=== PATIENT | female | born 2000 | race Hispanic/Latino ===

== ENCOUNTER 2022-05-15 21:45 | Emergency (ER) | payer SELFPAY ==
--- OUTSIDE RECORDS SUMMARY | 2022-05-15 21:49 | XMS REPORT | Continuity of Care Document ---
:2000 Author Organization Formerly [facility] t Address [address] [place] [address] Care Team Providers Name Role Phone .neto Attending Clinician Unavailable ENEDINA HARRIS Attending Clinician Unavailable ENEDINA HARRIS Attending Clinician Unavailable Minnie Mcdermott Attending Clinician [phone] SaeedWendy christie Attending Clinician Unavailable Rosalva García Attending Clinician Unavailable Neha Schultz Attending Clinician [phone] Enedina Harris Attending Clinician Mecca Duarte Attending Clinician Unavailable Monique Vázquez Attending Clinician Unavailable Darci Leyva Attending Clinician [phone] Shannen So Attending Clinician Unavailable Karina Hamilton Attending Clinician [phone] Claudia Valladares Attending Clinician Unavailable Ziyad Pollock Attending Clinician [phone] Kat Kilgore Attending Clinician Unavailable Carrie Arroyo Attending Clinician Unavailable Floresita Perry Attending Clinician Unavailable ENEDINA HARRIS Admitting Clinician Unavailable Enedina Harris Admitting Clinician Sharron, Minnie Unavailable [phone] Karina Hamilton Unavailable [phone] Payers Payer Name Policy Type Policy Number Effective Date Expiration Date S anthony [facility] P [id number] 2021 2021 CHIP 00:00:00 00:00:00 [place] [id number] 2021 2021 00:00:00 00:00:00 [facility] CI [id number] 2021 2022 [facility] 00:00:00 00:00:00 [facility] [facility] 11 [id number] 2021 2022 [facility] 00:00:00 00:00:00 [facility] Problems Condition Condition Condition Status Onset Resolution Last Treating Co mments Source Name Details Category Date Date Treatment Clinician Date Contracept Condition Active 2021-10-12 Aga, Minnie [facility] chioma 4-13 20:04:01 Communi management 00:00: ty 00 Health Anemia Condition Active 2020-072021-06-07 Aga, Minnie [facility] 2-06 11:57:43 Communi 00:00: ty 00 Health BMI 27 - Condition Active 2020-072021-06-06 Aga, Minnie [facility] 27.9, 2- 09:56:00 Communi adult 00:00: ty 00 Health ENCOUNTER ENCOUNTER Diagnosis Active 2021-08-26 Memoria FOR FOR 11-30 08:17:00 l VAGINAL VAGINAL 00:00: [place] DELIVERY DELIVERY 00 Active 11/30/2020 [facility] ENCOUNTER ENCOUNTER Diagnosis Active 2021-08-25 Memoria FOR FOR 07:25:00 l FULL-TERM FULL-TERM Herm gonsalo UNCOMPLICA UNCOMPLICA KHURRAM DE KHURRAM DE Active [facility] ENCOUNTER ENCOUNTER Diagnosis Active 2021-08-26 Memoria FOR FOR 08:17:00 l Rick n DELIVERY DELIVERY WITHOUT WITHOUT Active [facility] Patient Patient Problem Resolve 2021-08-312021-08-31 Memoria currently currently d 2- 22:43:35 22:43:35 l 00:00: Rick n (finding) (finding) 00 Resolved 08/26/2021 Problem 08/31/2021 [facility] History of Past Illness Condition Condition Condition Status Onset Resolution Last Treating Co mments Source Name Details Category Date Date Treatment Clinician Date Condition Inactiv 2021-11-10 2021-11-10 Aga, Destiny ne [facility] examinatio e 09-15 00:00:00 09:46:24 Co mmuni n, normal 00:00: ty 00 Health Condition Inactiv 2021-10-12 2021-10-12 Aga, Destiny ne [facility] depression e 09-15 00:00:00 11:34:34 Co mmuni , mild 00:00: ty 00 Health Breech Condition Inactiv 2021-10-12 2021-10-12 Aga, Minnie [facility] presentati e 08-18 00:00:00 11:34:34 Co mmuni on 00:00: ty 00 Health Rubella Condition Inactiv 2020-072021-10-12 2021-10-12 Aga, Minnie [facility] non-immune e 08-07 00:00:00 11:34:34 Co mmuni 00:00: ty 00 Health Insufficie Condition Inactiv 2020-072021-10-12 2021-10-12 Aga, Destiny ne [facility] nt e 08-02 00:00:00 11:34:34 Commun i 00:00: ty care, 00 Health third trimester Encounter Condition Inactiv 2020-072021-10-12 2021-10-12 Aga, Delphine e [facility] for e 08-02 00:00:00 11:34:34 Commun i supervisio 00:00: ty n of 00 Health normal first , third trimester 39 Weeks Condition Inactiv 2021-09-01 2021-08-25 Aga, Minnie [facility] Gestation e 08-25 00:00:00 10:02:30 Com jordan of 00:00: ty 00 Health 38 Weeks Condition Inactiv 2021-08-25 2021-08-18 Aga, Minnie [facility] Gestation e 2-17 00:00:00 10:31:37 Com jordan of 00:00: ty 00 Health 37 Weeks Condition Inactiv 2021-0 2021-08-18 2021-08-18 Aga, Minnie [facility] Gestation e - 00:00:00 10:31:37 Com jordan of 00:00: ty 00 Health 28 weeks Condition Inactiv 2021-07-25 2021-07-25 Aga, Minnie [facility] gestation e 07-12 00:00:00 09:00:14 Com jordan of 00:00: ty 00 Health 28 Weeks Condition Inactiv 2020-072021-06-20 2021-06-13 Beltramini [facility] Gestation e 08-14 00:00:00 15:57:22 , Karina Com jordan of 00:00: Weust ty 00 Health 30 weeks Condition Inactiv 2020-072021-06-13 2021-06-13 Beltramini [facility] gestation e 08-14 00:00:00 15:57:22 , Karina Com jordan of 00:00: Weust ty 00 Health 29 Weeks Condition Inactiv 2020-072021-06-08 2021-06-06 Aga, Minnie [facility] Gestation e 08-02 00:00:00 09:56:00 Com jordan of 00:00: ty 00 Health Allergies, Adverse Reactions, Alerts This patient has no known allergies or adverse reactions. Social History Social Habit Start Date Stop Date Quantity Comments Source is there any chance 2021-11-10 2021-11-10 [facility] that you could be 09:30:50 09:30:50 Health ? PHQ2 Questionairre 2021-11-10 2021-11-10 [facility] Score 09:30:50 09:30:50 Health if the patient is 2021-11-10 2021-11-10 No [facility] using/has used a 09:30:50 09:30:50 Health vaping item, Current, Former, Never Used, Not asked number of sexual 2021-10-12 2021-10-12 [facility] partners in last year 11:09:43 11:09:43 Hea lth Ever had sexual 2021-10-12 2021-10-12 Yes [facility] intercourse? 11:09:43 11:09:43 Health condom use 2021-09-15 2021-09-15 Never [facility] ty 08:56:40 08:56:40 Health total number of 2021-09-15 2021-09-15 [facility] lifetime sexual 08:56:40 08:56:40 Health partners Social History 2021-08-26 2021-08-26 [facility] Eleni kunz 15:24:25 15:24:25 assessment of health 2021-08-25 2021-08-25 Adequate [facility] literacy (NCQA [facility] 09:07:29 09:07:29 [facility] 2014 Standards, 3C10) passive cigarette 2021-08-25 2021-08-25 No [facility] smoke exposure 09:07:29 09:07:29 Health social history E&M 2021-06-01 2021-06-01 Pacien edil [facility] 10:26:47 10:26:47 Carl[place], does Health not work at the moment, lives in an apartment with two adults.she started her sex life a year ago. she does not practice any sabianism.denies alcohol, tobacco, tobacco abuse cat exposure during 2021-06-01 2021-06-01 no [facility] 10:26:47 10:26:47 Health Have you traveled to 2021-06-01 2021-06-01 no [facility] any zika virus 10:26:47 10:26:47 Health infected areas? Smoking Status Start Date Stop Date Source Never smoked tobacco (finding) [facility] Medications Ordered Filled Start Stop Current Ordering Indication Dosage Frequency Signature Comments Components Source Medication Medication Date Date Medication? Clinician (SIG) Name Name COLACE Yes Neha Take 1 [facility] (DOCUSATE 3-17 Horton-Sanc capsule by Communi SODIUM) 100 00:00: hez mouth ty MG CAPS 00 twice a Health day as needed tramadol Yes 50 mg = 1 Bari wanda hydrochlori 2-28 tab, PO, l de 50 MG 16:25: Q6H, PRN Marcela nn Oral Tablet 00 Pain, X 10 day, # 10 tab, 0 Refill(s), Pharmacy: [facility] Iggy , 144.78, cm, 08/25/21 7:43:00 LABORER HOISTING, Height, 58, kg, 08/25/21 7:43:00 LABORER HOISTING, Weight Tessalon No Notes: Memoria Perles 2-28 (Same As: l 04:49: Tessalon [place] 00 Perles) "Do Not Crush" Docusate Yes 100 mg = 1 Mem oria Sodium 100 2-27 cap, PO, l MG Oral 00:55: BID, PRN Rick n Capsule 00 Constipati on, # 60 cap, 0 Refill(s), Pharmacy: [facility] , 144.78, cm, 08/25/21 7:43:00 LABORER HOISTING, Height, 58, kg, 08/25/21 7:43:00 LABORER HOISTING, Weight ibuprofen Yes 800 mg = 1 Me moria 800 mg oral 2-27 tab, PO, l tablet 00:55: Q8H, PRN [place] 00 Pain, Take with food, X 14 day, # 30 tab, 0 Refill(s), Pharmacy: [facility] , 144.78, cm, 08/25/21 7:43:00 LABORER HOISTING, Height, 58, kg, 08/25/21 7:43:00 LABORER HOISTING, Weight ferrous Yes 325 mg = 1 Bari wanda sulfate 325 2-27 tab, PO, l MG Oral 00:55: Daily, # Rick n Tablet 00 90 tab, 0 Refill(s), Pharmacy: [facility] , 144.78, cm, 08/25/21 7:43:00 LABORER HOISTING, Height, 58, kg, 08/25/21 7:43:00 LABORER HOISTING, Weight Vitafol Yes 1 cap, PO, Bari wanda Ultra oral 2-27 Daily, # l capsule 00:55: 60 cap, 0 Marcela nn 00 Refill(s), Pharmacy: [facility] , 144.78, cm, 08/25/21 7:43:00 LABORER HOISTING, Height, 58, kg, 08/25/21 7:43:00 LABORER HOISTING, Weight No 1 tab, Memoria Multivitami 2-26 Route: PO, l ns oral 15:00: Drug Form: Herm gonsalo tablet 00 TAB, Dosing Weight 58, kg, Daily, Start date: 08/27/21 9:00:00 LABORER HOISTING, Duration: 30 day, Stop date: 09/25/21 9:00:00 CDT, 0 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 Ketorolac No 4 days Memor ia 08-27 l 00:00: MEDICATION WASTE Product Size: 30 mg Product Wasted: ___ mg Measles No Notes: Memoria Virus - (Same as: l Vaccine 22:00: M-M-R II) Marcela nn Live, 00 (measles-m [place]' umps-rubel attenuated la virus [facility] vaccine strain 2000 0.5 ml INJ UNT/ML / VL) WASTE: Mumps Virus F/P - Red; Vaccine E -Red Live, [place] [id number] DISCHARGE UNT/ML / Rubella Virus Vaccine Live ([facility] 27-3 Strain) 2000 UNT/ML Injectable Solution [M-M-R II] Calcium No 1,000 mL, Memor ia Chloride 2-25 1,000 l 0.0014 22:00: ml/hr, [place] MEQ/ML / 00 Infuse Potassium Over: 1 Chloride hr, Route: 0.004 IV, 1,000, MEQ/ML / Drug form: Sodium INJ, Chloride ONCALL, 0.103 Dosing MEQ/ML / Weight 58 Sodium kg, Start Lactate date: 0.028 02/25/22 MEQ/ML 16:00:00 Injectable LABORER HOISTING, Solution Duration: 1 doses or times, For OB hemorrhage per physician direction, 0 Oxytocin No Notes: Memoria 2-25 (Same as: l 22:00: Pitocin) Hazardous Drug Group 3:Reproduc tive risk Hazardous Drug -- Refer to safe handling procedure PPE Matrix Misoprostol No Notes: Bari wanda 2-25 (Same l 22:00: as:Cytotec ) Hazardous Drug Group 3:Reproduc tive risk Hazardous Drug -- Refer to safe handling procedure PPE Matrix Take with food Methylergon No Notes: Bari wanda ovine 2-25 (Same l 22:00: as:Metherg ine) Hazardous Drug Group 3:Reproduc tive risk Hazardous Drug -- Refer to safe handling procedure PPE Matrix Atropine No Notes: Memoria Sulfate 2-25 (Same As: l 0.025 MG / 22:00: Lomotil) Her talaevra Diphenoxyla MAX Adult te dose = 8 Hydrochlori tabs/day de 2.5 MG Oral Tablet Carboprost No Notes: Memor ia 2-25 (Same As: l 22:00: Hemabate) Tranexamic No Notes: Memor ia Acid 2-25 (Same As: l 22:00: Cyklokapro n) Lactated No 1,000 mL, Bari wanda Ringers IV 2-25 Rate: 100 l 1,000 mL 21:41: ml/hr, Infuse over: 10 hr, Route: IV, Dosing Weight 58 kg, Total Volume: 1,000, see special instructio n for rate while completing infusion from recovery for the 20 Units of Oxytocin., Start date: 08/26/21 15:41:00 LABORER HOISTING, Duration: 30... Ondansetron No Notes: Bari wanda 2-25 (Same as: l 21:41: Zofran) MEDICATION WASTE Product Size: 4 mg Product Wasted: ___ mg Docusate No Notes: Memoria 2-25 (Same as: l 21:41: Colace) (Do Not Crush) Bisacodyl No Notes: Memori a 2-25 (Same As: l 21:41: Dulcolax, [place] 00 Correctol) (Do Not Crush) "Do Not Crush" lanolin No Notes: Memoria topical 2-25 (Same l 21:41: as:Lanolin [place] 00 ) Benzocaine No Notes: Memor ia 200 MG/ML / 2-25 (Same As: l Menthol 5 21:41: [facility] He rmann MG/ML 00 ) WASTE: Topical Aerosol - [place] Return to [[facility]] FOR EXTERNAL USE ONLY Oxytocin No Notes: Memoria 2-25 Hazardous l 21:41: Drug Group [place] 00 3:Reproduc tive risk Hazardous Drug -- Refer to safe handling procedure PPE Matrix Saline No Notes: Memoria Flush 0.9% 2-25 Same as: l 21:41: BD [place] 00 Posiflush Sterile Acetaminoph No Notes: Bari wanda en 325 MG / 2-25 (Same as: l Hydrocodone 21:41: Brule Marcela nn Bitartrate 00 325/5) Do 5 MG Oral not exceed Tablet 4gm/day of acetaminop hen. Acetaminoph No Notes: Do M emoria en 325 MG / 2-25 not exceed l Hydrocodone 21:41: 4gm/day of [place] Bitartrate 00 acetaminop 10 MG Oral hen. (Same Tablet as: Brule 325/10) Famotidine No Notes: Memor ia 2-25 (Same as: l 20:00: Pepcid) Yvan 00 Can be dilute in 5-10cc NS IVP: Slow IV push over at least 2 minutes. Calcium No 1,000 mL, Memor ia Chloride 2-25 1,000 l 0.0014 20:00: ml/hr, Yvan MEQ/ML / 00 Infuse Potassium Over: 1 Chloride hr, Route: 0.004 IV, 1,000, MEQ/ML / Drug form: Sodium INJ, Chloride ONCALL, 0.103 Dosing MEQ/ML / Weight 58 Sodium kg, Start Lactate date: 0.028 08/26/22 MEQ/ML 14:00:00 Injectable LABORER HOISTING, Solution Duration: 1 doses or times, For OB hemorrhage per physician direction, 0 Oxytocin No Notes: Memoria 2-25 (Same as: l 20:00: Pitocin) Hazardous Drug Group 3:Reproduc tive risk Hazardous Drug -- Refer to safe handling procedure PPE Matrix Misoprostol No Notes: Bari wanda 2-25 (Same l 20:00: as:Cytotec ) Hazardous Drug Group 3:Reproduc tive risk Hazardous Drug -- Refer to safe handling procedure PPE Matrix Take with food Methylergon No Notes: Bari wanda ovine 2-25 (Same l 20:00: as:Metherg ine) Hazardous Drug Group 3:Reproduc tive risk Hazardous Drug -- Refer to safe handling procedure PPE Matrix Carboprost No Notes: Memor ia 2-25 (Same As: l 20:00: Hemabate) Tranexamic No Notes: Memor ia Acid 2-25 (Same As: l 20:00: Cyklokapro n) Cefazolin No Notes: Memori a 2-25 Same as l 20:00: Ancef Azithromyci No Notes: Bari wanda n 2-25 (Same As: l 20:00: Zithromax IV) Atropine No Notes: Memoria Sulfate 2-25 (Same As: l 0.025 MG / 20:00: Lomotil) Her [facility] Diphenoxyla MAX Adult te dose = 8 Hydrochlori tabs/day de 2.5 MG Oral Tablet Measles Yes Notes: Memoria Virus 2-25 (Same as: l Vaccine 20:00: M-M-R II) Marcela nn Live, 00 (measles-m [place]' umps-rubel attenuated la virus [facility] vaccine strain 2000 0.5 ml INJ UNT/ML / VL) WASTE: Mumps Virus F/P - Red; Vaccine E -Red Live, [place] [id number] DISCHARGE UNT/ML / Rubella Virus Vaccine Live ([facility] RA 27-3 Strain) 2000 UNT/ML Injectable Solution [M-M-R II] ondansetron No Route: IV, Memoria (ANES) 2-25 Drug form: l 19:53: INJ, ONCE, Stop date: 08/26/21 13:53:00 LABORER HOISTING dexamethaso No Route: IV, Memoria ne (ANES) 2-25 Drug form: l 19:53: INJ, ONCE, Stop date: 08/26/21 13:53:00 LABORER HOISTING phenylephri No Route: IV, Memoria ne (ANES) 2-25 Drug form: l 19:53: INJ, ONCE, Stop date: 08/26/21 13:53:00 LABORER HOISTING ketOROLAC No IV, ONCE Bari wanda (ANES) 2-25 l 19:49: Lactated No 1,000 mL, Bari wanda Ringers IV 2-25 Rate: 125 l 1,000 mL 19:41: ml/hr, Infuse over: 8 hr, Route: IV, Dosing Weight 58 kg, Total Volume: 1,000, see special instructio n for rate while completing infusion from recovery for the 20 Units of Oxytocin., Start date: 08/26/21 13:41:00 LABORER HOISTING, Duration: 30... Bisacodyl No Notes: Memori a 2-25 (Same As: l 19:41: Dulcolax, Bisco-Lax) Docusate No Notes: Memoria 2-25 (Same as: l 19:41: Colace) (Do Not Crush) lanolin No Notes: Memoria topical 2-25 (Same l cream 19:41: as:Lanolin 00 ) Benzocaine No Notes: Memor ia / Menthol 2-25 Same as: l 19:41: Cepacol Simethicone No Notes: Bari wanda 2-25 (Same as: l 19:41: Mylicon) Oxytocin No Notes: Memoria 2-25 Hazardous l 19:41: Drug Group 3:Reproduc tive risk Hazardous Drug -- Refer to safe handling procedure PPE Matrix Saline 2022-0 No Notes: Memoria Flush 0.9% 2-25 (Same as: l 19:41: BD Yvan Posiflush) Calcium No 1,000 mL, Memor ia Chloride 2-25 Rate: 125 l 0.0014 19:35: ml/hr, Yvan MEQ/ML / 00 Infuse Potassium over: 8 Chloride hr, Route: 0.004 IV, Dosing MEQ/ML / Weight 58 Sodium kg, Total Chloride Volume: 0.103 1,000, see MEQ/ML / special Sodium instructio Lactate ns when 0.028 infusing MEQ/ML 20 Units Injectable of Solution Oxytocin., Start date: 08/26/21 13:35:00 LABORER HOISTING, Duration: 30 day, Stop date: 09/25/21 13:34:00 CDT, BSA... oxytocin 30 No Notes: Bari wanda units in NS 2-25 Hazardous l 500 mL 19:35: Drug Group Marcela nn (Bolus) IV 00 3:Reproduc 10.02 unit tive risk Hazardous Drug -- Refer to safe handling procedure PPE Matrix oxytocin 30 No Notes: Bari wanda units in NS 2-25 Hazardous l 500 mL IV 19:35: Drug Group He rmann 19.98 unit 00 3:Reproduc tive risk Hazardous Drug -- Refer to safe handling procedure PPE Matrix Ondansetron No Notes: Bari wanda 2-25 (Same as: l 19:35: Zofran) Yvan 00 MEDICATION WASTE Product Size: 4 mg Product Wasted: ___ mg Oxytocin No Notes: Memoria 2-25 Hazardous l 19:35: Drug Group Yvan 00 3:Reproduc tive risk Hazardous Drug -- Refer to safe handling procedure PPE Matrix Atropine No Notes: Memoria Sulfate 2-25 (Same As: l 0.025 MG / 19:35: Lomotil) Her talavera Diphenoxyla 00 MAX Adult te dose = 8 Hydrochlori tabs/day de 2.5 MG Oral Tablet morphine No Route: Memoria Sulfate 2-25 EPIDURAL, l (ANES) 19:14: Drug form: Marcela nn 00 INJ, ONCE, Stop date: 08/26/21 13:14:00 LABORER HOISTING azithromyci 2022-0 No Route: IV, Memoria n (ANES) 2-25 Drug form: l 19:14: INJ, ONCE, Stop date: 08/26/21 13:14:00 LABORER HOISTING ceFAZolin No Route: IV, Me moria (ANES) 2-25 Drug form: l 19:04: INJ, ONCE, Stop date: 08/26/21 13:04:00 LABORER HOISTING Naloxone No Notes: Memoria 2-25 Same as l 19:00: Narcan oxytocin No Route: IV, Mem oria (ANES) 30 2-25 Drug form: l unit 18:55: SOLN, Start date: 08/26/21 12:55:00 LABORER HOISTING, Stop date: 08/26/21 13:55:00 LABORER HOISTING fentaNYL No Route: Memoria (ANES) 2-25 EPIDURAL, l 18:48: Drug form: INJ, ONCE, Stop date: 08/26/21 12:48:00 LABORER HOISTING lidocaine No Route: Memori a (ANES) 2-25 EPIDURAL, l 18:48: Drug form: INJ, ONCE, Stop date: 08/26/21 12:48:00 LABORER HOISTING Acetaminoph No Notes: Max Memoria en 2-25 acetaminop l 18:48: hen 4000 mg/day (4 gm/day). (Same as: Tylenol Extra Strength) Oxycodone No Notes: Memori a Hydrochlori 2-25 (Same as: l de 1 MG/ML 18:48: 'Roxicodon H ermann Oral 00 e) Solution Hydromorpho No Notes: Bari wanda ne 2-25 Same as l 18:48: Dilaudid Ondansetron No Notes: Bari wanda 2-25 (Same as: l 18:48: Zofran) MEDICATION WASTE Product Size: 4 mg Product Wasted: ___ mg Nalbuphine No Notes: Memor ia 2-25 (Same As: l 18:48: Nubain) Lactated No Route: IV, Mem oria Ringers 2-25 Total l Injection 17:48: Volume: Marcela nn IV (ANES) 00 1,000, 1000 mL Start date: 08/26/21 11:48:00 LABORER HOISTING, Stop date: 08/26/21 12:48:00 LABORER HOISTING Ibuprofen No Notes: Memori a 2-25 (Same as: l 16:00: Motrin) "Do Not Crush" Take with food. Calcium No 1,000 mL, Memor ia Chloride 2-25 1,000 l 0.0014 16:00: ml/hr, MEQ/ML / 00 Infuse Potassium Over: 1 Chloride hr, Route: 0.004 IV, 1,000, MEQ/ML / Drug form: Sodium INJ, Chloride ONCALL, 0.103 Dosing MEQ/ML / Weight 58 Sodium kg, Start Lactate date: 0.028 08/26/21 MEQ/ML 10:00:00 Injectable LABORER HOISTING, Solution Duration: 1 doses or times, For OB hemorrhage per physician direction, 0 Oxytocin No Notes: Memoria 2-25 (Same as: l 16:00: Pitocin) Hazardous Drug Group 3:Reproduc tive risk Hazardous Drug -- Refer to safe handling procedure PPE Matrix Misoprostol No Notes: Bari wanda 2-25 (Same l 16:00: as:Cytotec ) Hazardous Drug Group 3:Reproduc tive risk Hazardous Drug -- Refer to safe handling procedure PPE Matrix Take with food Methylergon No Notes: Bari wanda ovine 2-25 (Same l 16:00: as:Metherg ine) Hazardous Drug Group 3:Reproduc tive risk Hazardous Drug -- Refer to safe handling procedure PPE Matrix Atropine No Notes: Memoria Sulfate 2-25 (Same As: l 0.025 MG / 16:00: Lomotil) Her talavera Diphenoxyla 00 MAX Adult te dose = 8 Hydrochlori tabs/day de 2.5 MG Oral Tablet Carboprost No Notes: Memor ia 2-25 (Same As: l 16:00: Hemabate) Tranexamic No Notes: Memor ia Acid 2-25 (Same As: l 16:00: Cyklokapro 00 n) Calcium No 1,000 mL, Memor ia Chloride 2-25 Rate: 125 l 0.0014 15:34: ml/hr, [place] MEQ/ML / 00 Infuse Potassium over: 8 Chloride hr, Route: 0.004 IV, Dosing MEQ/ML / Weight 58 Sodium kg, Total Chloride Volume: 0.103 1,000, see MEQ/ML / special Sodium instructio Lactate ns when 0.028 infusing MEQ/ML 20 Units Injectable of Solution Oxytocin., Start date: 08/26/21 9:34:00 LABORER HOISTING, Duration: 30 day, Stop date: 09/25/21 9:33:00 CDT, BSA:... oxytocin No Notes: Bari wanda units in NS 2-25 Hazardous l 500 mL 15:34: Drug Group Marcela nn (Bolus) IV 00 3:Reproduc 10.02 unit tive risk Hazardous Drug -- Refer to safe handling procedure PPE Matrix oxytocin 30 No Notes: Bari wanda units in NS 2-25 Hazardous l 500 mL IV 15:34: Drug Group He rmann 19.98 unit 00 3:Reproduc tive risk Hazardous Drug -- Refer to safe handling procedure PPE Matrix Butorphanol No Notes: Bari wanda 2-25 (Same As: l 15:34: Stadol) Acetaminoph No Notes: Bari wanda en 325 MG / 2-25 (Same as: l Hydrocodone 15:34: Brule Marcela nn Bitartrate 00 325/5) Do 5 MG Oral not exceed Tablet 4gm/day of acetaminop hen. Acetaminoph No Notes: Do M emoria en 325 MG / 2-25 not exceed l Hydrocodone 15:34: 4gm/day of [place] Bitartrate 00 acetaminop 10 MG Oral hen. (Same Tablet as: [place] 325/10) Ondansetron No Notes: Bari wanda 2-25 (Same as: l 15:34: Zofran) MEDICATION WASTE Product Size: 4 mg Product Wasted: ___ mg Lidocaine No Notes: Memori a Hydrochlori 2-25 Preservati l de 10 MG/ML 15:34: ve free. He rmann Injectable 00 (Same as: Solution Xylocaine MPF) Terbutaline No Notes: Bari wanda 2-25 DO NOT l 15:34: USE IN Yvan 00 HAND FORMER AREA (Same As: Brethine) Benzocaine No Notes: Memor ia 200 MG/ML / 2-25 (Same As: l Menthol 5 15:34: [facility] He rmann MG/ML 00 ) WASTE: Topical Aerosol - [place] Return to [[facility]] FOR EXTERNAL USE ONLY Oxytocin No Notes: Memoria 2-25 Hazardous l 15:34: Drug Group Yvan 00 3:Reproduc tive risk Hazardous Drug -- Refer to safe handling procedure PPE Matrix ferrous No 325 mg = 1 Bari wanda sulfate 325 2-23 tab, PO, l mg oral 22:40: Daily Yvan enteric 00 coated tablet 1 No 1 tab, PO, M emoria oral 2-23 Daily l capsule 22:39: [place] 00 VITAFOL Yes Minnie Aga Take 1 [facility] ULTRA 1-19 capsule by Communi (PRENAT-FE 00:00: mouth once t y POLY-METHFO 00 a day Health L-FA-DHA) 29-0.6-0.4- 200 MG CAPS (FERROUS 2020-07 Yes Minnie Aga Take 1 [place] SULFATE) 2-06 tablet by Commun i 325 (65 Fe) 00:00: mouth once ty MG TABS 00 a day Health 2020-07- Minnie Aga Take 1 L egacy VITAMIN 2-01 01-19 tablet by Commun i ( 00:00: 00:00 mouth once t y VIT-FE 00 :00 a day Health FUMARATE-FA ) 27-0.8 MG TABS Immunizations Ordered Immunization Filled Immunization Date Status Commen ts Source Name Name Gardasil 9 IM 2021-10-12 Completed [facility] [id number] 11:27:00 Health measles/mumps/rubell 2021-08-29 Completed Bari rial Yvan a virus vaccine 17:39:00 Adacel IM 2021-06-13 Completed [facility] [id number] 12:18:00 Health Vital Signs Vital Name Observation Time Observation Value Comments Source height in 2021-11-10 09:30:50 3291.84 cm [facility] centimeters E&M Health blood pressure, 2021-11-10 09:30:50 51 mm[Hg] [facility] diastolic Health blood pressure, 2021-11-10 09:30:50 99 mm[Hg] [facility] systolic Health pulse rate 2021-11-10 09:30:50 61 /min [facility] temperature E&M 2021-11-10 09:30:50 98.4 [degF] [facility] pulse rate 2021-10-12 11:09:43 69 /min [facility] temperature E&M 2021-10-12 11:09:43 98.0 [degF] [facility] Health blood pressure, 2021-10-12 11:09:43 108 mm[Hg] [facility] systolic Health blood pressure, 2021-10-12 11:09:43 68 mm[Hg] [facility] Health weight E&M 2021-10-12 11:09:43 108.4 [lb_av] [facility] 2021-10-12 11:09:43 oral [facility] height E&M 2021-10-12 11:09:43 57 [in_i] [facility] blood pressure, 2021-09-15 08:56:40 60 mm[Hg] [facility] diastolic Health blood pressure, 2021-09-15 08:56:40 107 mm[Hg] [facility] systolic Health pulse rate 2021-09-15 08:56:40 63 /min [facility] temperature E&M 2021-09-15 08:56:40 98.7 [degF] [facility] weight E&M 2021-09-15 08:56:40 113.4 [lb_av] [facility] 2021-09-15 08:56:40 oral [facility] height E&M 2021-09-15 08:56:40 57 [in_i] [facility] Respitory Rate 2021-08-29 13:33:53 Memori al Yvan Systolic (mm Hg) 2021-08-29 13:33:36 Bari rial [place] Diastolic (mm Hg) 2021-08-29 13:33:36 Mem orial [place] Heart Rate 2021-08-29 13:33:36 [facility] [place] Temperature Oral (F) 2021-08-29 13:33:10 98.6 F [facility] [place] Heart Rate 2021-08-29 05:35:54 [facility] Respitory Rate 2021-08-29 05:35:54 Memori al Yvan Systolic (mm Hg) 2021-08-29 05:35:38 Bari rial Yvan Diastolic (mm Hg) 2021-08-29 05:35:38 Mem orial [place] Heart Rate 2021-08-29 05:35:38 [facility] [place] Temperature Oral (F) 2021-08-29 05:35:29 98.8 F [facility] [place] Temperature Oral (F) 2021-08-29 04:45:00 99.5 F [facility] Respitory Rate 2021-08-29 01:03:05 [facility] al [facility] Heart Rate 2021-08-29 01:03:05 [facility] [place] Systolic (mm Hg) 2021-08-29 01:02:59 Bari rial [place] Diastolic (mm Hg) 2021-08-29 01:02:59 Mem orial Yvan Temperature Oral (F) 2021-08-29 01:02:38 98.7 F [facility] [place] Respitory Rate 2021-08-28 21:39:42 Memori al Yvan Systolic (mm Hg) 2021-08-28 21:39:32 Bari rial Yvan Diastolic (mm Hg) 2021-08-28 21:39:32 Mem orial [place] Height 2021-08-25 13:43:00 144.78 cm [facility] Weight 2021-08-25 13:43:00 [facility] BMI Calculated 2021-08-25 13:43:00 Memori al Yvan blood pressure, 2021-08-25 09:07:29 62 mm[Hg] [facility] blood pressure, 2021-08-25 09:07:29 96 mm[Hg] [facility] pulse rate 2021-08-25 09:07:29 72 /min [facility] temperature E&M 2021-08-25 09:07:29 98.5 [degF] [facility] weight E&M 2021-08-25 09:07:29 129.2 [lb_av] [facility] temperature site 2021-08-25 09:07:29 oral [facility] height E&M 2021-08-25 09:07:29 57 [in_i] [facility] Height 2021-08-24 22:38:00 146 cm [facility] 2021-08-24 22:38:00 [facility] BMI Calculated 2021-08-24 22:38:00 [facility] [place] Height 2021-08-20 10:03:00 144.78 cm [facility] Weight 2021-08-20 10:03:00 [facility] BMI Calculated 2021-08-20 10:03:00 [facility] blood pressure, 2021-08-18 09:40:25 55 mm[Hg] [facility] diastolic Health blood pressure, 2021-08-18 09:40:25 94 mm[Hg] Leg[facility] systolic Health pulse rate 2021-08-18 09:40:25 67 /min [facility] temperature E&M 2021-08-18 09:40:25 98.9 [degF] [facility] weight E&M 2021-08-18 09:40:25 125.6 [lb_av] [facility] site 2021-08-18 09:40:25 oral [facility] height E&M 2021-08-18 09:40:25 57 [in_i] [facility] blood pressure, 2021-08-11 10:06:57 68 mm[Hg] [facility] blood pressure, 2021-08-11 10:06:57 105 mm[Hg] [facility] Health pulse rate 2021-08-11 10:06:57 62 /min [facility] temperature E&M 2021-08-11 10:06:57 97.9 [degF] [facility] weight E&M 2021-08-11 10:06:57 127.4 [lb_av] [facility] 2021-08-11 10:06:57 oral [facility] height E&M 2021-08-11 10:06:57 57 [in_i] [facility] blood pressure, 2021-07-25 08:35:35 68 mm[Hg] [facility] blood pressure, 2021-07-25 08:35:35 106 mm[Hg] [facility] pulse rate 2021-07-25 08:35:35 85 /min [facility] temperature E&M 2021-07-25 08:35:35 97.8 [degF] [facility] weight E&M 2021-07-25 08:35:35 124.0 [lb_av] [facility] 2021-07-25 08:35:35 oral [facility] height E&M 2021-07-25 08:35:35 57 [in_i] [facility] pulse rate 2021-07-20 09:23:26 96 /min [facility] temperature E&M 2021-07-20 09:23:26 98.6 [degF] [facility] blood pressure, 2021-07-20 09:23:26 67 mm[Hg] [facility] Health blood pressure, 2021-07-20 09:23:26 108 mm[Hg] [facility] weight E&M 2021-07-20 09:23:26 124 [lb_av] [facility] temperature site 2021-07-20 09:23:26 oral [facility] height E&M 2021-07-20 09:23:26 57 [in_i] [facility] blood pressure, 2021-06-13 13:30:55 63 mm[Hg] [facility] Health blood pressure, 2021-06-13 13:30:55 107 mm[Hg] [facility] pulse rate 2021-06-13 13:30:55 76 /min [facility] temperature E&M 2021-06-13 13:30:55 97.7 [degF] [facility] weight E&M 2021-06-13 13:30:55 121 [lb_av] [facility] site 2021-06-13 13:30:55 oral [facility] height E&M 2021-06-13 13:30:55 57 [in_i] [facility] blood pressure, 2021-06-13 11:21:19 63 mm[Hg] [facility] diastolic Health blood pressure, 2021-06-13 11:21:19 101 mm[Hg] [facility] systolic Health pulse rate 2021-06-13 11:21:19 78 /min [facility] temperature E&M 2021-06-13 11:21:19 98.2 [degF] [facility] weight E&M 2021-06-13 11:21:19 120.4 [lb_av] [facility] site 2021-06-13 11:21:19 oral [facility] height E&M 2021-06-13 11:21:19 57 [in_i] [facility] blood pressure, 2021-06-01 10:26:47 63 mm[Hg] [facility] diastolic Health blood pressure, 2021-06-01 10:26:47 101 mm[Hg] [facility] systolic Health pulse rate 2021-06-01 10:26:47 62 /min [facility] temperature E&M 2021-06-01 10:26:47 97.5 [degF] Legac y [facility] temperature site 2021-06-01 10:26:47 oral Lega [facility] height E&M 2021-06-01 10:26:47 57 [in_i] [facility] weight E&M 2021-06-01 10:26:47 128 [lb_av] [facility] Procedures Procedure Date / Time Performing Clinician Source Performed Insertion, 2021-11-10 09:45:52 Minnie Mcdermott nitprakash non-biodegradable drug Health delivery implant (Nexplanon) Etonogestrel 2021-11-10 09:45:52 Minnie Mcdermott nity (contraceptive) implant Health system, including implant and supplies IM or SQ Injection 2021-10-12 11:33:35 Minnie Mcdermott [facility] First Ix admin via ID IM 2021-10-12 11:26:36 Minnie Mcdermott luma [facility] or jet injects with Health counseling by physician for adult Gardasil 9 Intramuscular 2021-10-12 11:26:36 Minnie Mcdermott Douglas ge [facility] Suspension Health Vaccines Ordered - Print 2021-10-12 11:23:54 Sharron Minnie Douglas [facility] Consent/Declination Health Forms Behavioral Health - 2021-09-15 09:33:18 Neha [facility] OB Ultrasound, single 2021-06-13 15:56:38 Karina Hamilton [facility] First Ix admin via ID IM 2021-06-13 12:16:22 Ziyad Pollock luma [facility] or jet injects with Health counseling by physician for adult Adacel Intramuscular 2021-06-13 12:16:22 Ziyad Pollock [facility] Suspension 5-2-15.5 Health Vaccines Ordered - Print 2021-06-13 11:23:04 Phill Ziyad [facility] Consent/Declination Health Forms Vaccines Ordered - Print 2021-06-01 10:44:50 Sharron Minnie ge [facility] Consent/Declination Health Forms Health 2021-02-28 13:14:59 Provider, José antoine Education/Supportive Health Services Health Counseling Encounters Start End Encounter Admission Attending Care Care Encounter Source Date/Time Date/Time Type Type Clinicians Facility Department ID 2022-05-01 Outpatient bridgett [facility] [id number] [facility] 05:05:17 [id number] [facility] 2021-11-25 Outpatient FABIANA [facility] [id number] 8-2 [place] 01:03:41 ENEDINA [id number] Health 2021-08-26 Inpatient [facility] 2027 [facility] 08:14:00 ENEDINA 2021-11-10 2021-11-10 Office Minnie Mcdermott [facility] Encount er/ Legacy 00:00:00 00:00:00 Visit Saeed, Wendy [id number] Communi [id number] ty Health 2021-10-12 2021-10-12 Office Minnie Mcdermott [facility] Encount er/ Legacy 00:00:00 00:00:00 Visit Rosalva García [id number] Communi Wendy [place] [id number] ty Health 2021-09-15 2021-09-15 [facility] 00:00:00 00:00:00 Visit Wendy [place]ipt[place] [id number] Commun [id number] Health 2021-08-26 2021-08-29 Inpatient [facility] [id number] [facility] 14:14:00 18:25:00 Yvan 28 l [facility] 2021-08-26 2021-08-29 [facility]patient [facility] [id number] 08:14:00 12:25:00 Enedina Manoj 28 2021-08-26 2021-08-26 [facility]patient [facility] [id number] 08:14:00 08:14:00 Enedina Manoj 28 2021-08-25 2021-08-25 Office Minnie Mcdermott [facility] Encount er/ Legacy 00:00:00 00:00:00 Visit Mecca Duarte [id number] Communi [id number] Health 2021-08-18 2021-08-18 Office Minnie Mcdermott [facility] Encount er/ Legacy 00:00:00 00:00:00 Visit Wendy Tipton [id number] [facility] Monique Vázquez [id number] ty Health 2021-08-11 2021-08-11 Office Darci Leyva [facility] Enc ounter/ Legacy 00:00:00 00:00:00 Visit Shannen So [id number] Communi [id number] ty Health 2021-07-25 2021-07-25 Office Minnie Mcdermott [facility] Encount er/ Legacy 00:00:00 00:00:00 Visit Shannen So [id number] Communi [id number] ty Health 2021-06-13 2021-06-13 Office Karina Hamilton [facility] Encounter/ Legacy 00:00:00 00:00:00 Visit Mecca Duarte [id number] [facility] Claudia Valladares [id number] t Health 2021-06-13 2021-06-13 Office Ziyad Pollock [facility] En counter/ Legacy 00:00:00 00:00:00 Visit Kat Kilgore [id number] [facility] Arroyo, Carrie [id number] Health 2021-06-01 2021-06-01 Office Minnie Mcdermott [facility] Encount er/ Legacy 00:00:00 00:00:00 Visit Floresita Perry 1 [id number] [facility] [id number] [facility] Results Test Description Test Time Test Comments Results Result Comments Source beta HCG, urine, semiquantitative 2021-11-10 09:30:50 Test Item Value Reference Range Interpretation Comme nts beta HCG, urine, semiquantitative (test code = 2106-3) negative [facility] 06:24:00 Test Item Value Reference Range Interpretation Comments Hgb (test code = Hgb) 10.3 12.0-16.0 [facility] [id number] 06:24:00 Test Item Value Reference Range Interpretation Comments Hct (test code = Hct) 30.4 36.0-48.0 [facility] [employer] [id number] 15:37:00 Test Item Value Reference Range Interpretation Comments ABO/Rh (test code = ABO/Rh) O POS [facility] [employer] [id number] 15:37:00 Test Item Value Reference Range Interpretation Comments Antibody Scrn (test Negative (08/26/21 9:37 code = Antibody Scrn) AM) [facility] [employer] [id number] 15:37:00 Test Item Value Reference Range Interpretation Comments Rhig Reqd (test code = See Note 1(08/26/21 9:37 Rhig Reqd) AM) [facility] [id number] 15:37:00 Test Item Value Reference Range Interpretation Comments WBC X 10x3 (test code = WBC X 10x3) 6.7 3.7-10.4 [place] [id number] 15:37:00 Test Item Value Reference Range Interpretation Comments RBC X 10x6 (test code = RBC X 10x6) 3.84 4.20-5.40 [place] [id number] 15:37:00 Test Item Value Reference Range Interpretation Comments Hgb (test code = Hgb) 11.8 12.0-16.0 [place] 87359-02-25 15:37:00 Test Item Value Reference Range Interpretation Comments Hct (test code = Hct) 35.4 36.0-48.0 [place] [id number] 15:37:00 Test Item Value Reference Range Interpretation Comments MCV (test code = MCV) 92.1 80.0-98.0 [place] 87359-02-25 15:37:00 Test Item Value Reference Range Interpretation Comments MCH (test code = MCH) 30.8 pg 27.0-31.0 [place] [id number] 15:37:00 Test Item Value Reference Range Interpretation Comments MCHC (test code = MCHC) 33.5 32.0-36.0 [place] [id number] 15:37:00 Test Item Value Reference Range Interpretation Comments RDW (test code = RDW) 14.9 11.5-14.5 [place] [id number] 15:37:00 Test Item Value Reference Range Interpretation Comments Platelet (test code = Platelet) 196 133-450 [facility]KdvkwbuRTZUSKCZBI5766-78-53 15:37:00 Test Item Value Reference Range Interpretation Comments MPV (test code = MPV) 10.0 7.4-10.4 [place] [id number] 15:37:00 Test Item Value Reference Range Interpretation Comments Segs (test code = Segs) 59.4 45.0-75.0 [place] 87[address]-02-25 15:37:00 Test Item Value Reference Range Interpretation Comments Lymphocytes (test code = Lymphocytes) 28.2 20.0-40.0 [place] [address]-02-25 15:37:00 Test Item Value Reference Range Interpretation Comments Monocytes (test code = Monocytes) 9.1 2.0-12.0 [place] [id number] 15:37:00 Test Item Value Reference Range Interpretation Comments Eosinophils (test code = 2.7 See_Comment [A utomated message] The Eosinophils) system which ge nerated this result tra nsmitted reference range : <=4.0. The reference r erik was not used to int erpret this result as normal/abnormal . [facility] DistrictUmdevgyBWJLUEGHXO1637-45-82 15:37:00 Test Item Value Reference Range Interpretation Comments Basophils (test code = 0.6 See_Comment [Aut omated message] The Basophils) system which ge nerated this result tra nsmitted reference range : <=1.0. The reference r erik was not used to int erpret this result as normal/abnormal . [facility] DistrictByfywryZGVTWHYVFS2970-79-95 15:37:00 Test Item Value Reference Range Interpretation Comments Neutrophils # (test code = Neutrophils 4.0 1.5-8.1 #) [facility] DistrictFrsbwveTWTNJDDHRA8496-29-19 15:37:00 Test Item Value Reference Range Interpretation Comments Lymphocytes # (test code = Lymphocytes 1.9 1.0-5.5 #) [facility] DistrictZxruybyHZDJKMGCBL2584-16-03 15:37:00 Test Item Value Reference Range Interpretation Comments Monocytes # (test code 0.6 See_Comment [Aut omated message] The = Monocytes #) system which generated this result tra nsmitted reference range : <=0.8. The reference r erik was not used to int erpret this result as normal/abnormal . [facility] DistrictOseylirHOHQHBQONL1863-55-88 15:37:00 Test Item Value Reference Range Interpretation Comments Eosinophils # (test code 0.2 See_Comment [A utomated message] The = Eosinophils #) system whic h generated this result tra nsmitted reference range : <=0.5. The reference r erik was not used to int erpret this result as normal/abnormal . [facility]zblybaVZXKNSLYIF8252-81-41 15:37:00 Test Item Value Reference Range Interpretation Comments Hep Bs Ag (test code Negative *NA*(08/26/21 = Hep Bs Ag) 9:37 AM) [id number] 15:37:00 Test Item Value Reference Range Interpretation Comments HIV. (test code = Negative *NA*(08/26/21 HIV.) 9:37 AM) [place] [id number] 15:37:00 Test Item Value Reference Range Interpretation Comments Treponemal Ab (test code Non-Reactive = Treponemal Ab) *NA*(08/26/21 9:37 AM) [facility] AllianceQfxyhyhCQOQNSQYFD9500-10-81 13:36:00 Test Item Value Reference Range Interpretation Comments Coronavirus (COVID-19) Not Detected (08/25/21 GUTIERREZ (test code = 7:36 AM) Coronavirus (COVID-19) GUTIERREZ) [facility] AllianceVaginal Group B Strep by Real-Time [id number] 10:55:00 Test Item Value Reference Range Interpretation Comments Vaginal Group B No group B Streptococcus Strep by Real-Time isolated PCR (test code = 190926) [facility] Care[facility]isseria gonorrhoeae DNA [id number] 10:55:00 Test Item Value Reference Range Interpretation Comments Neisseria gonorrhoeae DNA probe NOT DETECTED NOT DETECTED N (test code = 92402-7) [facility] Carechlamydia DNA [id number] 10:55:00 Test Item Value Reference Range Interpretation Comments chlamydia DNA probe (test code = NOT DETECTED NOT DETECTED N 44506-2) [facility] CareCystic Fibrosis DNA, Whole [id number] 00:00:00 Test Item Value Reference Range Interpretation Comments Cystic Fibrosis DNA, Whole Blood Negative N (test code = 36047) [facility] CareNeisseria gonorrhoeae DNA [id number] 13:30:00 Test Item Value Reference Range Interpretation Comments Neisseria gonorrhoeae DNA probe Negative Negative (test code = 36296-1) [facility] Carechlamydia DNA [id number] 13:30:00 Test Item Value Reference Range Interpretation Comments chlamydia DNA probe (test code = Negative Negative 14266-6) [facility] Careurine [id number] 11:50:00 Test Item Value Reference Range Interpretation Comments urine culture (test code = 630-4) No growth [facility] Careurinalysis, microscopic nacvwyldkpp4089-30-77 11:50:00 Test Item Value Reference Range Interpretation Comments urinalysis, microscopic examination MICNIP (test code = 29223-7) [facility] Carenitrate, [id number] 11:50:00 Test Item Value Reference Range Interpretation Comments nitrate, urine (test code = 67621-2) Negative Negative [facility] Careurobilinogen, urine, semiquantitative (dipstick) 2021-06-01 11:50:00 Test Item Value Reference Range Interpretation Comments urobilinogen, urine, 0.2 (unknown 0.2-1.0 semiquantitative (dipstick) unit) (test code = 5818-0) [facility] Carebilirubin, [id number] 11:50:00 Test Item Value Reference Range Interpretation Comments bilirubin, urine (test code = Negative Negative 5770-3) [facility] Careketones, urine, by test [id number] 11:50:00 Test Item Value Reference Range Interpretation Comments ketones, urine, by test strip (test Negative Negative code = 5797-6) [facility] Careglucose, urine, [id number] 11:50:00 Test Item Value Reference Range Interpretation Comments glucose, urine, semiquantitative (test Trace Negative A code = 5792-7) [facility] Careprotein, urine, semiquantitative (dipstick)2021-06-01 11:50:00 Test Item Value Reference Range Interpretation Comments protein, urine, semiquantitative Negative Negative/Trace (dipstick) (test code = 1753-3) [facility] Careleukocyte esterase, urine, by [id number] 11:50:00 Test Item Value Reference Range Interpretation Comments leukocyte esterase, urine, by Negative Negative dipstick (test code = 5799-2) [facility] Careappearance, [id number] 11:50:00 Test Item Value Reference Range Interpretation Comments appearance, urine (test code = 5767-9) Clear Clear [facility] Careurine [id number] 11:50:00 Test Item Value Reference Range Interpretation Comments urine color (test code = 5778-6) Yellow Yellow [facility] CarepH, urine, [id number] 11:50:00 Test Item Value Reference Range Interpretation Comments pH, urine, semiquantitative 6.5 (unknown 5.0-7.5 (test code = 5803-2) unit) [facility] Carespecific gravity, body [id number] 11:50:00 Test Item Value Reference Range Interpretation Comments specific gravity, body 1.015 (unknown unit) 1.005-1.030 fluid (test code = 2964-5) [facility] Carehepatitis B surface [id number] 11:44:00 Test Item Value Reference Range Interpretation Comments hepatitis B surface antigen (test Negative Negative code = 79) [facility] CareRh [id number] 11:44:00 Test Item Value Reference Range Interpretation Comments Rh antibody (test code = 256) Negative Negative [facility] Carehepatitis C antibody, [id number] 11:44:00 Test Item Value Reference Range Interpretation Comments hepatitis C antibody, serum (test code <0.1 0.0-0.9 = 5199-5) [facility] Careblood glucose, 1 hour after 50 gm oral [id number] 11:44:00 Test Item Value Reference Range Interpretation Comments blood glucose, 1 hour after 50 gm 136 mg/dL 65-139 oral glucose (test code = 1039) [facility] CareHIV-CMIA (Chemiluminescent Microparticle Immuno Assay) 2021-06-01 11:44:00 Test Item Value Reference Range Interpretation Comments HIV-CMIA (Chemiluminescent Non Reactive Non Reactive Microparticle Immuno Assay) (test code = 029822) [facility] CareTreponema pallidum particle agglutination assay (TPPA test)2021-06-01 11:44:00 Test Item Value Reference Range Interpretation Comments Treponema pallidum particle Non Reactive Non Reactive agglutination assay (TPPA test) (test code = 22447-1) [facility] Carerubella antibody, serum, [id number] 11:44:00 Test Item Value Reference Range Interpretation Comments rubella antibody, 0.92 (unknown See_Comment L [Automat ed message] serum, IgG (test unit) The system which code = 5334-8) generated thi s result transmitted ref erence range: Immune > 0.99. The reference r erik was not used to interpret this result as normal/abnor mal. [facility] [id number] 11:44:00 Test Item Value Reference Range Interpretation Comments Rh antigen (test code = 255) Positive [facility] CareABO blood [id number] 11:44:00 Test Item Value Reference Range Interpretation Comments ABO blood group (test code = 116) O [facility] Careimmature granulocytes, percentage of total cells, blood 2021-06-01 11:44:00 Test Item Value Reference Range Interpretation Comments immature granulocytes, percentage of 1 % total cells, blood (test code = 03411-3) [facility] Carebasophil count, [id number] 11:44:00 Test Item Value Reference Range Interpretation Comments basophil count, absolute (test 0.0 x10E3/uL 0.0-0.2 code = 16249-3) [facility] HealthEosinophil Absolute [id number] 11:44:00 Test Item Value Reference Range Interpretation Comments Eosinophil Absolute Count (test 0.1 X10E3/UL 0.0-0.4 code = 53432-4) [facility] Caremonocyte count, blood, [id number] 11:44:00 Test Item Value Reference Range Interpretation Comments monocyte count, blood, automated 0.4 X10E3/UL 0.1-0.9 (test code = 742-7) [facility] Care[facility] count, blood, [id number] 11:44:00 Test Item Value Reference Range Interpretation Comments lymphocyte count, blood, 1.2 X10E3/UL 0.7-3.1 automated (test code = 731-0) [facility] CareAbsolute [id number] 11:44:00 Test Item Value Reference Range Interpretation Comments Absolute Neutrophils (test code 5.3 X10E3/UL 1.4-7.0 = 27140-6) [facility] Carebasophils as percent of blood [id number] 11:44:00 Test Item Value Reference Range Interpretation Comments basophils as percent of blood 1 % leukocytes (test code = 707-0) [facility] blood [id number] 11:44:00 Test Item Value Reference Range Interpretation Comments eosinophils as percent of blood 2 % leukocytes (test code = 713-8) [facility] Healthmonocytes as percent of blood [id number] 11:44:00 Test Item Value Reference Range Interpretation Comments monocytes as percent of blood 6 % leukocytes (test code = 5905-5) [facility] Carelymphocytes as percent of blood [id number] 11:44:00 Test Item Value Reference Range Interpretation Comments lymphocytes as percent of blood 17 % leukocytes (test code = 736-9) [facility] Careneutrophils as percent of blood [id number] 11:44:00 Test Item Value Reference Range Interpretation Comments neutrophils as percent of blood 73 % leukocytes (test code = 770-8) [facility] Careplatelet [id number] 11:44:00 Test Item Value Reference Range Interpretation Comments platelet count (test code = 248 X10E3/UL 150-450 777-3) [facility] Carered blood cell distribution [id number] 11:44:00 Test Item Value Reference Range Interpretation Comments red blood cell distribution width 12.9 % 11.7-15.4 (test code = 788-0) [facility] corpuscular hemoglobin concentration, [id number] 11:44:00 Test Item Value Reference Range Interpretation Comments mean corpuscular hemoglobin 33.6 G/DL 31.5-35.7 concentration, RBC (test code = 786-4) [facility] corpuscular hemoglobin, [id number] 11:44:00 Test Item Value Reference Range Interpretation Comments mean corpuscular hemoglobin, RBC 31.6 pg 26.6-33.0 (test code = 785-6) [facility] corpuscular volume, [id number] 11:44:00 Test Item Value Reference Range Interpretation Comments mean corpuscular volume, RBC (test code 94 fL 79-97 = 787-2) [facility] Carehematocrit, [id number] 11:44:00 Test Item Value Reference Range Interpretation Comments hematocrit, blood (test code = 4544-3) 32.4 % 34.0-46.6 L [facility] Carehemoglobin, [id number] 11:44:00 Test Item Value Reference Range Interpretation Comments hemoglobin, blood (test code = 10.9 g/dL 11.1-15.9 L 718-7) [facility] Careerythrocyte (RBC) [id number] 11:44:00 Test Item Value Reference Range Interpretation Comments erythrocyte (RBC) count (test 3.45 X10E6/UL 3.77-5.28 L code = 789-8) [facility] Careleukocyte count, [id number] 11:44:00 Test Item Value Reference Range Interpretation Comments leukocyte count, blood (test 7.1 X10E3/UL 3.4-10.8 code = 6690-2) [facility] CareHerpes Simplex Virus [id number] 10:26:47 Test Item Value Reference Range Interpretation Comments Herpes Simplex Virus Genital (test code no = 4258) [facility] Carebeta HCG, urine, [id number] 11:23:06 Test Item Value Reference Range Interpretation Comments beta HCG, urine, semiquantitative positive (test code = 2106-3) [facility] Carebeta HCG, urine, [id number] 15:57:58 Test Item Value Reference Range Interpretation Comments beta HCG, urine, semiquantitative positive (test code = 2106-3) [facility] Carebeta HCG, urine, [id number] 12:44:10 Test Item Value Reference Range Interpretation Comments beta HCG, urine, semiquantitative positive (test code = 2106-3) [facility]
--- NOTE | 2022-05-15 23:02 | RAD REPORT ---
EXAM DESCRIPTION: RAD - Wrist Left 3 View - 05/15/2022 10:52 pm CLINICAL HISTORY: pain Pain COMPARISON: No comparisons FINDINGS: No fracture or dislocation seen. No foreign body or other soft tissue abnormality. IMPRESSION: Negative examination.
--- NOTE | 2022-05-16 01:10 | EDPHYS ---
Physician Documentation [facility] Name: Mehnaz House Age: 21 yrs Sex: Female : 2000 Arrival Date: 05/15/2022 Time: 21:48 Bed 20 Private MD: ED Physician Zay Adler HPI: 05/15 23:21 This 21 yrs old Female presents to ER via Ambulatory with complaints of Fall Injury. kb 23:21 Details of fall: The patient fell from an upright position, while walking. Onset: The kb symptoms/episode began/occurred 1 week(s) ago. Associated injuries: The patient sustained left wrist, painful injury, anterior aspect of right ankle and right wells and right knee, painful injury. Severity of symptoms: At their worst the symptoms were mild, in the emergency department the symptoms are unchanged. The patient has not experienced similar symptoms in the past. The patient has not recently seen a physician. Pt tripped over a rock and fell one week ago. c/o pain to left wrist and right leg since fall. . 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 - Social history:: Smoking status: unknown. ROS: 23:20 Constitutional: Negative for fever, chills, and weight loss. kb 23:20 MS/extremity: Positive for pain, of the left wrist, right knee, right wells and anterior aspect of right ankle. 23:20 All other systems are negative. Exam: 23:20 Constitutional: This is a well developed, well nourished patient who is awake, alert, kb and in no acute distress. Head/Face: Normocephalic, atraumatic. ENT: Moist Mucous membranes Cardiovascular: Regular rate and rhythm with a normal S1 and S2. No gallops, murmurs, or rubs. No pulse deficits. Respiratory: Respirations even and unlabored. No increased work of breathing. Talking in full sentences Abdomen/GI: Soft, non-tender. No distention Skin: Warm, dry with normal turgor. Normal color. MS/ Extremity: Pulses equal, no cyanosis. Neurovascular intact. Full, normal range of motion. Neuro: Awake and alert, GCS 15, oriented to person, place, time, and situation. Moves all extremities. Normal gait. Vital Signs: 21:58 BP 100 / 70; Pulse 68; Resp 16; Temp 98.6; Pulse Ox 100% on R/A; Weight 16.7 kg; Pain kd3 12/09; 05/16 00:17 BP 114 / 79; Pulse 68; Resp 16 S; Pulse Ox 100% on R/A; ha1 MDM: 05/15 22:02 Patient medically screened. kb 23:20 Data reviewed: vital signs, nurses notes. Data interpreted: Pulse oximetry: on room air kb is 100 %. Interpretation: normal. Counseling: I had a detailed discussion with the patient and/or guardian regarding: the historical points, exam findings, and any diagnostic results supporting the discharge/admit diagnosis, radiology results, the need for outpatient follow up, a family practitioner, to return to the emergency department if symptoms worsen or persist or if there are any questions or concerns that arise at home. Administered Medications: No medications were administered Disposition: 05/16 01:29 Co-signature as Attending Physician, Zay Adler MD I agree with the assessment and rt plan of care. Disposition Summary: 05/16/22 00:09 Discharge Ordered Location: Home kb Condition: Stable kb Diagnosis - Pain in left wrist kb - Pain in right lower leg kb - Fall on same level from slipping, tripping and stumbling without subsequent kb striking against object Followup: kb - With: Emergency Department - When: As needed - Reason: Worsening of condition Followup: kb - With: Private Physician - When: 2 - 3 days - Reason: Recheck today's complaints, Continuance of care, Re-evaluation by your physician Discharge Instructions: - Discharge Summary Sheet kb - Musculoskeletal Pain kb Forms: - Medication Reconciliation Form kb - Thank You Letter kb - Antibiotic Education kb - Prescription Opioid Use kb Signatures: Asia Mcfarlane FNP-C FNP-Ckb Doucette, Kyli RN RN kd3 Zay Adler MD MD rt
--- NOTE | 2022-05-16 01:11 | ER ---
Nurse's Notes [facility] Name: Mehnaz House Age: 21 yrs Sex: Female : 2000 Arrival Date: 05/15/2022 Time: 21:48 Bed 20 Private MD: Diagnosis: Pain in left wrist;Pain in right lower leg;Fall on same level from slipping, tripping and stumbling without subsequent striking against object Presentation: 05/15 21:58 Chief complaint: Patient states: On Sunday I fell and I hurt my right ankle. The pain kd3 radiates up from the right ankle to the right knee. My left arm also hurts to move. I tripped on some rocks and rolled my ankle and I feel like its getting worse and hard to move. I also have a sore throat that has been going on for a week. Coronavirus screen: Vaccine status: Patient reports receiving the 2nd dose of the covid vaccine. Ebola Screen: No symptoms or risks identified at this time. Initial Sepsis Screen: Does the patient meet any 2 criteria? No. Patient's initial sepsis screen is negative. Does the patient have a suspected source of infection? No. Patient's initial sepsis screen is negative. Risk Assessment: Do you want to hurt yourself or someone else? Patient reports no desire to harm self or others. Onset of symptoms was May 15, 2022. 21:58 Method Of Arrival: Ambulatory kd3 21:58 Acuity: LEAH 4 kd3 Triage Assessment: 22:04 General: Appears in no apparent distress. Behavior is calm, cooperative. Pain: kd3 Complains of pain in left arm and right ankle. EENT: No deficits noted. Neuro: Level of Consciousness is awake, alert, obeys commands, Oriented to person, place, time, situation. Cardiovascular: Patient's skin is warm and dry. Respiratory: Airway is patent Trachea midline Respiratory effort is even, unlabored, Respiratory pattern is regular, symmetrical. 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 - Social history:: Smoking status: unknown. Screenin/15 00:18 Abuse screen: Denies threats or abuse. Denies injuries from another. Nutritional ha1 screening: No deficits noted. Tuberculosis screening: No symptoms or risk factors identified. Fall Risk None identified. Assessment: 05/15 22:45 General: Appears in no apparent distress. comfortable, Behavior is calm, cooperative, jb4 appropriate for age. Pain: Complains of pain in left arm and right leg Pain does not radiate. Pain currently is 5 out of 10 on a pain scale. Quality of pain is described as aching. Neuro: Level of Consciousness is awake, alert, obeys commands, Oriented to person, place, time, situation. Cardiovascular: Patient's skin is warm and dry. Respiratory: Airway is patent Respiratory effort is even, unlabored, Respiratory pattern is regular, symmetrical. GI: No signs and/or symptoms were reported involving the gastrointestinal system. : No signs and/or symptoms were reported regarding the genitourinary system. EENT: No signs and/or symptoms were reported regarding the EENT system. Derm: Skin is intact, Skin is pink, warm \T\ dry. Musculoskeletal: Circulation, motion, and sensation intact. Range of motion: intact in all extremities. 05/16 00:19 Reassessment: Patient and/or family updated on plan of care and expected duration. Pain ha1 level reassessed. Patient is alert, oriented x 3, equal unlabored respirations, skin warm/dry/pink. Pain: Complains of pain in right knee and left wrist and right ankle Pain does not radiate. Pain currently is 2 out of 10 on a pain scale. Pain began 2-3 days ago. Neuro: Level of Consciousness is awake, alert, obeys commands, Oriented to person, place, time, situation. Respiratory: Airway is patent Trachea midline Respiratory effort is even, unlabored, Respiratory pattern is regular, symmetrical. Vital Signs: 05/15 21:58 BP 100 / 70; Pulse 68; Resp 16; Temp 98.6; Pulse Ox 100% on R/A; Weight 16.7 kg; Pain kd3 6/10; 05/16 00:17 BP 114 / 79; Pulse 68; Resp 16 S; Pulse Ox 100% on R/A; ha1 ED Course: 05/15 21:48 Patient arrived in ED. mr 21:56 Asia Mcfarlane [facility]-C [facility] kb 21:56 Zay Adler MD is Attending Physician. kb 22:04 Triage completed. kd3 22:04 Arm band placed on right wrist. kd3 22:43 Lewis Martinez, RN is Primary Nurse. jb4 05/16 00:19 Patient has correct armband on for positive identification. Bed in low position. Call ha1 light in reach. Side rails up X 1. 00:19 No provider procedures requiring assistance completed. Patient did not have IV access ha1 during this emergency room visit. Administered Medications: No medications were administered Medication: 00:19 VIS not applicable for this client. ha1 Outcome: 00:09 Discharge ordered by . kb 00:19 Discharged to home ambulatory, with family. ha1 00:19 Condition: stable 00:19 Discharge instructions given to patient, family, Instructed on discharge instructions, follow up and referral plans. Demonstrated understanding of instructions, follow-up care. 00:21 Patient left the ED. ha1 Signatures: Asia Mcfarlane, MILL FEEDER-C MILL FEEDER-Ckb Tania Miles mr Lewis Martinez, RN RN jb4 Janeth Hauser RN RN kd3 Simran Marino, BRIANA RN ha1
[2022-05-16 03:12] VITALS: TEMP 98.6; O2SAT 100
[2022-05-16 03:13] VITALS: BP 114/79
--- NOTE | 2022-05-16 15:18 | RAD REPORT ---
EXAM DESCRIPTION: Tib Fib Right CLINICAL HISTORY: 21 years Female, pain COMPARISON: None. FINDINGS: Exam limited given that only a single frontal view is obtained. No evidence of an acute fracture of the right tibia or fibula. No dislocation. Surrounding soft tissues are unremarkable. IMPRESSION: No evidence of an acute fracture of the right tibia or fibula within the limits of the s tudy. Electronically signed by: Rudy Velazco MD 05/16/2022 12:23 AM TRAVELING NURSE Due to temporary technical issues with the PACS/Fluency reporting system, reports are being signed by the in house radiologists without review as a courtesy to insure prompt reporting. The interpreting radiologist is fully responsible for the content of the report.
== END 2022-05-16 00:21 | disposition home or self-care (01) ==
LOC: ER 21:45
DX: M25.532 Pain in left wrist (principal); M79.661 Pain in right lower leg; W01.0XXA Fall on same level from slipping, tripping and stumbling without subsequent striking against object, initial encounter
CPT/HCPCS: 99281